=== PATIENT | male | born 1955 | race African-American/Black ===

== ENCOUNTER 2017-10-17 18:46 | Emergency (ER) | payer SELFPAY ==
[~2017-10-17] VITALS: Ht 185.4 cm; Wt 89.8 kg
[2017-10-17] MEDS ORDERED: cloNIDine HCL 0.1 MG TAB ONE (18:53)
[2017-10-17] MEDS: cloNIDine HCL 0.1 MG TAB PO ONE ×2 (19:00→19:33)
[2017-10-17 19:35] VITALS: BP 196/113
== END 2017-10-17 19:57 | disposition home or self-care (01) ==
LOC: ER 18:46
DX: I16.0 Hypertensive urgency (principal); I10 Essential (primary) hypertension; F17.210 Nicotine dependence, cigarettes, uncomplicated